=== PATIENT | female | born 2000 ===

== ENCOUNTER 2021-11-12 11:03 | Emergency (ER) | payer SELFPAY ==
[2021-11-12] MEDS ORDERED: Phenazopyridine 200 MG Tab PO ONE (13:33)
[2021-11-12] MEDS ORDERED: cefTRIAXone 1 GM Vial IM ONE (13:33)
[2021-11-12] MEDS ORDERED: Lidocaine 2% 5 ML SDV INJECT ONE (13:46)
[2021-11-12] MEDS ORDERED: Lidocaine 1% PF 2 ML SDV INJECT ONE (13:54)
[2021-11-12 14:55] LABS: C. TRACHOMATIS BY PCR NOT DETECTED; N. GONORRHOEAE BY PCR NOT DETECTED
== END 2021-11-12 15:34 | disposition home or self-care (01) ==
LOC: MW.ED 11:03
DX: N39.0 Urinary tract infection, site not specified (principal); N76.0 Acute vaginitis; B37.3 Candidiasis of vulva and vagina; B96.89 Other specified bacterial agents as the cause of diseases classified elsewhere; Z88.8 Allergy status to other drugs, medicaments and biological substances
CPT/HCPCS: 81001; 81025; 87086; 87480; 87491; 87510; 87591; 87660; 96372; 99283; A9270; J0696